=== PATIENT | male | born 1985 | race Caucasian/White ===

== ENCOUNTER 2020-01-05 09:34 | Inpatient (IN) | payer MEDICAID ==
[~2020-01-05] VITALS: Ht 182.9 cm; Wt 87.6 kg
[2020-01-05 10:20] VITALS: BP 118/76
[2020-01-05] MEDS ORDERED: ZOLPIDEM TARTRATE 10 MG TABLET PO PRN (10:45)
[2020-01-05] MEDS ORDERED: TUBERCULIN, PURIFIED PROTEIN DERIVATIVE 5 TU/0.1 ML SYRINGE ID ONE (10:45)
[2020-01-05 11:39] VITALS: BP 118/76
[2020-01-05 16:52] VITALS: BP 151/75
[2020-01-05 17:28] VITALS: BP 125/75
[2020-01-06] MEDS ORDERED: MAGNESIUM HYDROXIDE SUSPENSION 30 ML UDCUP PO PRN (08:30)
[2020-01-06] MEDS ORDERED: LOPERAMIDE HCL 2 MG CAPSULE PO PRN (08:30)
[2020-01-06] MEDS ORDERED: BENZOCAINE/MENTHOL LOZENGE PO PRN (08:30)
[2020-01-06] MEDS ORDERED: ONDANSETRON HCL 4 MG TABLET PO PRN (08:30)
[2020-01-06] MEDS ORDERED: DOCUSATE SODIUM 100 MG CAPSULE PO PRN (08:30)
[2020-01-06] MEDS ORDERED: PETROLATUM,WHITE 28 GM JELLY TP PRN (08:30)
[2020-01-06] MEDS ORDERED: ALBUTEROL SULFATE HFA 90 MCG/PUFF 8 GM INHALER IH PRN (08:30)
[2020-01-06] MEDS ORDERED: ACETAMINOPHEN 325 MG TABLET PO PRN (08:30)
[2020-01-06] MEDS ORDERED: CloNIDine HCL 0.1 MG TABLET PO PRN (08:30)
[2020-01-06] MEDS ORDERED: OMEPRAZOLE 20 MG CAPSULE PO PRN (08:30)
[2020-01-06] MEDS ORDERED: IBUPROFEN 600 MG TABLET PO PRN (08:30)
[2020-01-06] MEDS ORDERED: BACITRACIN 28.4 GM OINTMENT TP PRN (08:30)
[2020-01-06] MEDS ORDERED: MAG HYDROX/AL HYDROX/SIMETH ES 30 ML SUSPENSION UDCUP PO PRN (08:30)
[2020-01-06] MEDS ORDERED: CITALOPRAM HYDROBROMIDE 20 MG TABLET PO SCH (09:00)
[2020-01-06 09:10] VITALS: BP 138/64
[2020-01-06 17:03] VITALS: BP 132/67
[2020-01-06] MEDS: LORazepam 2 MG TABLET PO PRN (17:30)
[2020-01-06] MEDS: OLANZapine 5 MG TABLET PO SCH (20:26)
[2020-01-07 09:46] VITALS: BP 119/79
[2020-01-07] MEDS: LORazepam 2 MG TABLET PO PRN ×2 (09:55→17:36)
[2020-01-07 16:12] VITALS: BP 108/73
[2020-01-07] MEDS: OLANZapine 5 MG TABLET PO SCH (20:51)
[2020-01-08 02:25] VITALS: BP 110/72
[2020-01-08 11:05] VITALS: BP 111/68
[2020-01-08] MEDS: HALOPERIDOL 5 MG TABLET PO PRN (11:07)
[2020-01-08] MEDS: LORazepam 2 MG TABLET PO PRN ×2 (11:07→20:28)
[2020-01-08 16:29] VITALS: BP 110/67
[2020-01-08] MEDS: OLANZapine 5 MG TABLET PO SCH (20:28)
[2020-01-08] MEDS ORDERED: OLANZapine 10 MG TABLET PO SCH (21:00)
[2020-01-09 06:04] VITALS: BP 119/69
[2020-01-09 08:29] VITALS: BP 120/85
[2020-01-09] MEDS: DIVALPROEX SODIUM 500 MG DR TABLET PO SCH ×2 (09:00→16:43)
[2020-01-09] MEDS: LORazepam 2 MG TABLET PO PRN (12:35)
[2020-01-09] MEDS: HALOPERIDOL 5 MG TABLET PO PRN (14:51)
[2020-01-09 16:21] VITALS: BP 119/74
[2020-01-09] MEDS: OLANZapine 10 MG TABLET PO SCH (20:26)
[2020-01-10 02:50] VITALS: BP 102/67
[2020-01-10] MEDS: LORazepam 2 MG TABLET PO PRN ×3 (08:38→20:43)
[2020-01-10] MEDS: DIVALPROEX SODIUM 500 MG DR TABLET PO SCH ×2 (08:39→09:44)
[2020-01-10 09:29] VITALS: BP 123/72
[2020-01-10 16:13] VITALS: BP 107/84
[2020-01-10] MEDS: OLANZapine 10 MG TABLET PO SCH (20:38)
[2020-01-11 04:45] VITALS: BP 110/70
[2020-01-11 08:40] VITALS: BP 101/61
[2020-01-11] MEDS: DIVALPROEX SODIUM 500 MG DR TABLET PO SCH (08:56)
[2020-01-11] MEDS ORDERED: DIVA-112 PO (12:51)
[2020-01-11] MEDS ORDERED: OLAN10TA3 PO (12:51)
[2020-01-11] MEDS ORDERED: OLANZapine 10 MG TABLET PO SCH (21:00)
== END 2020-01-11 13:15 | disposition home or self-care (01) | DRG 754 ==
LOC: B2S 10:38
PROVIDERS: ADMIT Psychiatry & Neurology Psychiatry; ATTEND Psychiatry & Neurology Psychiatry
DX: F32.9 Major depressive disorder, single episode, unspecified (principal); F41.9 Anxiety disorder, unspecified; G47.00 Insomnia, unspecified; Z72.0 Tobacco use
CPT/HCPCS: 90749; Z7610